=== PATIENT | female | born 1960 | race Two or more races ===

== ENCOUNTER 2023-04-21 09:48 | Outpatient (AMB) | payer OTHER, SELFPAY ==
--- NOTE | 2023-04-21 09:54 | MHC.PC.OV ---
Vital Signs 04/21/23 09:57 Height 5 ft 4 in Weight 313 lb 4 oz BMI 53.8 BP 132/90 H Blood Pressure Location Lt brachial Position Sitting Pulse 91 Pulse Source Pulse Oximeter Pulse Oximetry (%) 97 Oxygen Delivery Method Room Air Intake Visit Reasons: f/u Intake Note: Patient is here to follow up on HTN. Distributor Operator Required: No Supervisor Dry Cell Assembly: Not Required per policy Accompanied by: Self / Same As Patient Allergies Codeine Sulfate Allergy (Unknown, Uncoded 05/01/23 14:47) swelling Medication List - Last Reconciled 05/01/23 by Edmar Chatterjee MD cholecalciferol (vitamin D3) 25 mcg PO DAILY thiamine HCl (vitamin B1) 100 mg PO DAILY vitamin B complex 1 cap PO DAILY Tobacco use date assessed: 04/21/23 Dental Screening Dental Screen Date: 04/21/23 Did you have a dental visit in the last 12 months?: No Did you have a dental problem in the last 6 months where you did not have access to dental care?: No Was dental information given to patient?: No HPI f/u HPI Details = 62-year-old female presents to the office to discuss her chronic medical conditions. Patient gives history of intense anxiety when she meets people. She does not like to be in small areas and does not venture out of the house much. She has not been seen in this office in a long time. Continues to feel anxious. Reluctant to take any medications. [facility] Medical History (Updated 05/01/23 @ 14:51 by Edmar Chatterjee MD) Generalized anxiety disorder Essential hypertension Surgical History History of lithotripsy History of 3 sections Family History Mother No problems noted. Father No problems noted. Social History Housing: Apartment Alcohol intake: never Patient Tobacco Use Status: Never used Tobacco e-Cigarette/Vaping Use: Never Used Second Hand Smoke Exposure: No service: No Current occupational status: disabled Cognitive needs: Yes (cane) Hearing needs: No Vision needs: Yes (glasses) Questionnaire PHQ-9 Over the last 2 weeks, how often have you been bothered by any of the following problems? 1. Little interest or pleasure in doing things: more than half the days 2. Feeling down, depressed, or hopeless: nearly every day 3. Trouble falling or staying asleep, or sleeping too much: several days 4. Feeling tired or having little energy: several days 5. Poor appetite or overeating: more than half the days 6. Feeling bad about yourself - or that you are a failure or have let yourself or your family down: several days 7. Trouble concentrating on things, such as reading the newspaper or watching television: several days 8. Moving or speaking so slowly that other people could have noticed. Or the opposite - being so fidgety or restless that you have been moving around a lot more than usual: not at all 9. Thoughts that you would be better off or of hurting yourself in some way: not at all Total score: 11 Depression Screening Interpretation: Positive Depression Screening Done: Yes Source: Developed by Drs. Edmond Kaiser, Dinorah Durán, Jakob Heath and colleagues, with an educational марина from [employer]. Thrive Questionnaire Date Thrive assessed: 04/21/23 I am a: Patient What is your living situation today?: I have a steady place to live Within the past 12 months, did the food you bought not last and you didn't have the money to get more?: Never true Within the past 12 months, did you worry whether your food would run out before you got money to buy more?: Never true Do you have trouble paying for medicines?: No Do you have trouble getting transportation to medical appointments?: No Do you have trouble paying your heating and electricity bill?: No Do you have trouble taking care of your child, family member or friend?: No Do you have trouble with day-to-day activities such as bathing, preparing meals, shopping, managing finances, etc.?: No Are you currently unemployed and looking for a job?: No Are you interested in more education?: No Currently or been in a relationship where the following occur: no concerns reported THRIVE Score: 0 AUDIT C Alcohol Use Questionnaire (AUDIT-C) 1. How often do you have a drink containing alcohol?: Never Total Score: 0 THOMAS-7 AMB Questionnaire THOMAS-7 Date THOMAS - 7 assessed: 04/21/23 Feeling nervous, anxious, or on edge: 3 = Nearly every day Not being able to stop or control worryin = Nearly every day Worrying too much about different things: 3 = Nearly every day Trouble relaxin = Nearly every day Being so restless that it is hard to sit still: 2 = More than half the days Becoming easily annoyed or irritable: 1 = Several days Feeling afraid as if something awful might happen: 1 = Several days Total THOMAS-7 score (0-4 normal; 5-9 mild; 10-14 moderate; 15-21 severe): 16 Source: Developed by Drs. Edmond Kaiser, Dinorah Durán, Jakob Heath and colleagues, with an educational марина from [employer]. Physical exam (Primary Care) Vital Signs: Last Vital Signs Pulse 91 04/21/23 09:57 BP 132/90 H 04/21/23 09:57 Pulse Ox 97 04/21/23 09:57 Oxygen Delivery Method Room Air 04/21/23 09:57 Care Plan Goal for BP management: Diastolic blood pressure is elevated. Patient unwilling to take medications. BMI result Body Mass Index 53.8 BMI Assessment/Plan discussion: High (1 lb per week weight loss suggested.) BMI High, discussed plan: lifestyle, weight reduction, dietary and physical activity Tobacco/Smoking Status: Tobacco use Status Tobacco use date assessed 04/21/23 04/21/23 10:02 Patient Tobacco Use Status Never used Tobacco 04/21/23 10:06 e-Cigarette/Vaping Use Never Used 04/21/23 10:06 PHQ-9: PHQ-9 Score PHQ-9: Total score 11 04/21/23 10:09 Depression Screening Interpretation: Positive Thrive Assessment: Date of Thrive Assessment Date Thrive assessed 04/21/23 04/21/23 10:02 Currently or been in a relationship where the following occur: no concerns reported Const General: cooperative and healthy appearing Nutritional Appearance: well nourished Orientation/consciousness: patient oriented x3 Limitations: no limitations HENMT Head: Yes normal to inspection Eyes General: appearance normal, both eyes and all related structures Neck Neck: Yes normal visual inspection Chest Chest palpation & inspection: normal palpation of entire chest wall Resp Effort & Inspection: normal respiratory effort Neuro General: patient oriented x3 Assessment and Plan Assessment & Plan (1) Class 2 severe obesity with body mass index (BMI) of 35 to 39.9 with serious comorbidity: Code(s): E66.01 - Morbid (severe) obesity due to excess calories Plan: Patient was counseled on the importance of diet and exercise. 1 lb per week weight loss suggested. (2) Essential hypertension: Code(s): I10 - Essential (primary) hypertension Plan: Due to her anxiety, patient is not getting blood work done. She is also very reluctant to start any blood pressure medications. (3) Generalized anxiety disorder: Code(s): F41.1 - Generalized anxiety disorder Plan: Her medical condition is affecting her daily activities. Patient does not venture out due to anxiety about being in small places. She is declining therapy or medications. Her son who was waiting outside for her was brought into the office. I explained my concerns. The son has promised to talk to his mother and will get back to me. Coding Level of Care Code Est Pt Level 4 (29063) Diagnoses Class 2 severe obesity with body mass index (BMI) of 35 to 39.9 with serious comorbidity E66.01 Essential hypertension I10 Generalized anxiety disorder F41.1
[2023-04-21 09:57] VITALS: BP 132/90; PULSE 91; O2SAT 97; BMI 53.8
== END 2023-04-21 10:57 | disposition home or self-care (01) ==
PROVIDERS: PCP Internal Medicine; Visit Provider Internal Medicine
DX: I10 Essential (primary) hypertension (principal); E66.01 Morbid (severe) obesity due to excess calories; F41.1 Generalized anxiety disorder; Z68.43 Body mass index [BMI] 50.0-59.9, adult
CPT/HCPCS: 99214

== ENCOUNTER 2023-06-29 11:34 | Outpatient (REF) | payer OTHER, SELFPAY ==
[2023-06-29 13:47] LABS: Alanine Aminotransferase 43 U/L (0-31); Albumin Level 4.2 g/dL (3.5-5.0); Alkaline Phosphatase 105 U/L (39-117); Anion Gap 16 (12-20); Aspartate Amino Transferase 25 U/L (5-31); Bilirubin Direct 0.2 mg/dL (0.0-0.5); Bilirubin Total 0.4 mg/dL (0.0-1.0); Blood Urea Nitrogen 12 mg/dL (9-16); Calcium 9.7 mg/dL (8.4-10.2); Carbon Dioxide 26 mmol/L (22-29); Chloride 103 mmol/L (96-108); Cholesterol 198 mg/dL (<200); Estimated Glomerular Filt Rate > 60; Glucose Random 96 mg/dL (60-115); HDL Cholesterol 56 mg/dL (>40); LDL Cholesterol Calculated 126 mg/dL (<100); Potassium 3.9 mmol/L (3.3-5.1); Sodium 141 mmol/L (135-145); Total Protein 8.2 g/dL (6.5-8.0); Triglycerides 84 mg/dL (<150)
[2023-06-29 14:03] LABS: Thyroid Stimulating Hormone 12.72 uIU/mL (0.32-4.0)
== END 2023-06-29 11:35 | disposition home or self-care (01) ==
LOC: HO.LAB 11:34
PROVIDERS: PCP Internal Medicine; Visit Provider Internal Medicine
DX: E66.01 Morbid (severe) obesity due to excess calories (principal); I10 Essential (primary) hypertension
CPT/HCPCS: 36415; 80048; 80061; 80076; 84443

== ENCOUNTER 2023-06-30 09:00 | Outpatient (AMB) | payer OTHER, SELFPAY ==
--- NOTE | 2023-06-30 09:02 | A.OFFPC_ITS ---
Vital Signs 06/30/23 09:03 Height 5 ft 4 in Weight 312 lb 4 oz BMI 53.6 BP 130/80 Blood Pressure Location Lt brachial Position Sitting Pulse 98 Pulse Source Pulse Oximeter Pulse Oximetry (%) 97 Oxygen Delivery Method Room Air Intake Visit Reasons: HTN, THOMAS f/u Intake Note: Patient is here to follow up on HTN, THOMAS. Applications Support Engineer Required: No Data Warehouse Manager: Not Required per policy Accompanied by: Self / Same As Patient Allergies Codeine Sulfate Allergy (Unknown, Uncoded 06/30/23 10:02) swelling Medication List - Last Reconciled 06/30/23 by Edmar Chatterjee MD cholecalciferol (vitamin D3) 25 mcg PO DAILY levothyroxine (Synthroid) 25 mcg PO DAILY thiamine HCl (vitamin B1) 100 mg PO DAILY vitamin B complex 1 cap PO DAILY Tobacco use date assessed: 06/30/23 Dental Screening Dental Screen Date: 04/21/23 HPI HTN, THOMAS f/u HPI Details 62 yr old presents to the office to disc uss her medical conditions. Pt continues to have marked anxiety. This precludes her from going out of the house or getting labwork done. With a lot of persuasion from her son, she could get bw done for today's office visit. [facility] Medical History (Updated 06/30/23 @ 10:06 by Edmar Chatterjee MD) Acquired hypothyroidism Class 2 severe obesity with body mass index (BMI) of 35 to 39.9 with serious comorbidity Generalized anxiety disorder Essential hypertension Surgical History History of lithotripsy History of 3 sections Family History Mother No problems noted. Father No problems noted. Social History Housing: Apartment Alcohol intake: never Patient Tobacco Use Status: Never used Tobacco e-Cigarette/Vaping Use: Never Used Second Hand Smoke Exposure: No service: No Current occupational status: disabled Cognitive needs: Yes (cane) Hearing needs: No Vision needs: Yes (glasses) Questionnaire PHQ-9 Over the last 2 weeks, how often have you been bothered by any of the following problems? 1. Little interest or pleasure in doing things: nearly every day 2. Feeling down, depressed, or hopeless: nearly every day 3. Trouble falling or staying asleep, or sleeping too much: more than half the days 4. Feeling tired or having little energy: more than half the days 5. Poor appetite or overeating: more than half the days 6. Feeling bad about yourself - or that you are a failure or have let yourself or your family down: more than half the days 7. Trouble concentrating on things, such as reading the newspaper or watching television: nearly every day 8. Moving or speaking so slowly that other people could have noticed. Or the opposite - being so fidgety or restless that you have been moving around a lot more than usual: several days 9. Thoughts that you would be better off or of hurting yourself in some way: not at all Total score: 18 Depression Screening Interpretation: Positive Depression Screening Done: Yes Source: Developed by Drs. Edmond Kaiser, Jakob Rob and colleagues, with an educational марина from [employer]. Thrive Questionnaire Date Thrive assessed: 04/21/23 THOMAS-7 AMB Questionnaire THOMAS-7 Date THOMAS - 7 assessed: 06/30/23 Feeling nervous, anxious, or on edge: 3 = Nearly every day Not being able to stop or control worryin = More than half the days Worrying too much about different things: 2 = More than half the days Trouble relaxin = More than half the days Being so restless that it is hard to sit still: 1 = Several days Becoming easily annoyed or irritable: 0 = Not at all Feeling afraid as if something awful might happen: 1 = Several days Total THOMAS-7 score (0-4 normal; 5-9 mild; 10-14 moderate; 15-21 severe): 11 Source: Developed by Drs. Edmond Kaiser, Jakob Rob and colleagues, with an educational марина from [employer]. Physical exam (Primary Care) Vital Signs: Last Vital Signs Pulse 98 06/30/23 09:03 BP 130/80 06/30/23 09:03 Pulse Ox 97 06/30/23 09:03 Oxygen Delivery Method Room Air 06/30/23 09:03 BMI result Body Mass Index 53.6 Tobacco/Smoking Status: Tobacco use Status Tobacco use date assessed 06/30/23 06/30/23 09:13 Patient Tobacco Use Status Never used Tobacco 06/30/23 09:13 e-Cigarette/Vaping Use Never Used 06/30/23 09:13 PHQ-9: PHQ-9 Score PHQ-9: Total score 18 06/30/23 09:13 Depression Screening Interpretation: Positive Thrive Assessment: Date of Thrive Assessment Date Thrive assessed 04/21/23 06/30/23 09:13 Const General: cooperative and healthy appearing Nutritional Appearance: well nourished Orientation/consciousness: patient oriented x3 Limitations: no limitations HENMT Head: Yes normal to inspection Eyes General: appearance normal, both eyes and all related structures Neck Neck: Yes normal visual inspection Chest Chest palpation & inspection: normal palpation of entire chest wall Resp Effort & Inspection: normal respiratory effort Neuro General: patient oriented x3 Assessment and Plan Assessment & Plan (1) Class 2 severe obesity with body mass index (BMI) of 35 to 39.9 with serious comorbidity: Code(s): E66.01 - Morbid (severe) obesity due to excess calories Plan: Weight loss counselling done (2) Acquired hypothyroidism: Code(s): E03.9 - Hypothyroidism, unspecified Plan: TSH is elevated. Pt very unsure, if she can be compliant with medications. Again importance of taking the med emphasized. Medications: New levothyroxine (Synthroid) 25 mcg PO DAILY 60 tabs 0RF Coding Level of Care Code Est Pt Level 4 (95048) Diagnoses Class 2 severe obesity with body mass index (BMI) of 35 to 39.9 with serious comorbidity E66.01 Acquired hypothyroidism E03.9
[2023-06-30 09:03] VITALS: BP 130/80; PULSE 98; O2SAT 97; BMI 53.6
== END 2023-06-30 09:57 | disposition home or self-care (01) ==
PROVIDERS: PCP Internal Medicine; Visit Provider Internal Medicine
DX: E03.9 Hypothyroidism, unspecified (principal); E66.01 Morbid (severe) obesity due to excess calories; Z68.43 Body mass index [BMI] 50.0-59.9, adult
CPT/HCPCS: 99214

== ENCOUNTER 2023-09-22 10:10 | Outpatient (AMB) | payer OTHER, SELFPAY ==
[2023-09-22 10:15] VITALS: BP 156/84; PULSE 98; O2SAT 97; BMI 55.1
--- NOTE | 2023-09-22 10:15 | A.OFFPC_ITS ---
Vital Signs 09/22/23 10:15 Height 5 ft 4 in Weight 321 lb BMI 55.1 BP 156/84 H Blood Pressure Location Lt brachial Position Sitting Pulse 98 Pulse Source Pulse Oximeter Pulse Oximetry (%) 97 Oxygen Delivery Method Room Air Intake Visit Reasons: Reschedule Lt leg pain Glass Cleaner Required: No Allergies Codeine Sulfate Allergy (Unknown, Uncoded 09/28/23 10:23) swelling Medication List - Last Reconciled 09/28/23 by Edmar Chatterjee MD cholecalciferol (vitamin D3) 25 mcg PO DAILY thiamine HCl (vitamin B1) 100 mg PO DAILY vitamin B complex 1 cap PO DAILY Tobacco use date assessed: 06/30/23 Dental Screening Dental Screen Date: 04/21/23 HPI Reschedule Lt leg pain HPI Details 62-year-old female presents to the [facility] for a follow-up visit. She stopped taking the Synthroid because it led to vaginal bleeding on two separate occasions. Continues to have pain in the left hip and leg. Reluctant to take any prescription medications. Using a walker to ambulate on occasions. Lives with her son. Able to go to the bathroom independently. [facility] Medical History Acquired hypothyroidism Class 2 severe obesity with body mass index (BMI) of 35 to 39.9 with serious comorbidity Generalized anxiety disorder Essential hypertension Surgical History History of lithotripsy History of 3 sections Family History Mother No problems noted. Father No problems noted. Social History Housing: Apartment Alcohol intake: never Patient Tobacco Use Status: Never used Tobacco e-Cigarette/Vaping Use: Never Used Second Hand Smoke Exposure: No service: No Current occupational status: disabled Cognitive needs: Yes (cane) Hearing needs: No Vision needs: Yes (glasses) Questionnaire Thrive Questionnaire Date Thrive assessed: 04/21/23 AUDIT C Alcohol Use Questionnaire (AUDIT-C) 1. How often do you have a drink containing alcohol?: Never 3. How often do you have six or more drinks on one occasion?: Never Total Score: 0 THOMAS-7 AMB Questionnaire THOMAS-7 Date THOMAS - 7 assessed: 06/30/23 Feeling nervous, anxious, or on edge: 3 = Nearly every day Not being able to stop or control worryin = More than half the days Worrying too much about different things: 2 = More than half the days Trouble relaxin = More than half the days Being so restless that it is hard to sit still: 1 = Several days Becoming easily annoyed or irritable: 0 = Not at all Feeling afraid as if something awful might happen: 1 = Several days Total THOMAS-7 score (0-4 normal; 5-9 mild; 10-14 moderate; 15-21 severe): 11 Source: Developed by Drs. Edmond Kaiser, Dinorah Durán, Jakob Heath and colleagues, with an educational марина from [employer]. Physical exam (Primary Care) Vital Signs: Last Vital Signs Pulse 98 09/22/23 10:15 BP 156/84 H 09/22/23 10:15 Pulse Ox 97 09/22/23 10:15 Oxygen Delivery Method Room Air 09/22/23 10:15 Care Plan Goal for BP management: Elevated blood pressure noted. Patient is reluctant to start medications. BMI result Body Mass Index 55.1 BMI Assessment/Plan discussion: High Tobacco/Smoking Status: Tobacco use Status Tobacco use date assessed 06/30/23 09/22/23 10:15 Patient Tobacco Use Status Never used Tobacco 09/22/23 10:15 e-Cigarette/Vaping Use Never Used 09/22/23 10:15 Thrive Assessment: Date of Thrive Assessment Date Thrive assessed 04/21/23 09/22/23 10:15 Const General: cooperative and healthy appearing Nutritional Appearance: well nourished Orientation/consciousness: patient oriented x3 Limitations: no limitations HENMT Head: Yes normal to inspection Eyes General: appearance normal, both eyes and all related structures Neck Neck: Yes normal visual inspection Chest Chest palpation & inspection: normal palpation of entire chest wall Resp Effort & Inspection: normal respiratory effort Neuro General: patient oriented x3 Assessment and Plan Assessment & Plan (1) Acquired hypothyroidism: Code(s): E03.9 - Hypothyroidism, unspecified Plan: Patient has stopped taking Synthroid and has refused to take these medications in the future. She understands that untreated, this condition will worsen. (2) Generalized anxiety disorder: Code(s): F41.1 - Generalized anxiety disorder Plan: Patient overall is not taking care of her health. The vaginal bleeding needs further investigation. I encouraged her to see a senior pensions administrator and patient has r efused again. She does not like coming out of the house, it causes extreme anxiety for her. She does not like taking medications as they do not suit her. I encouraged patient to bring her family members to the office visits. Again, she does not want to bother them. Patient is capable to make valid decisions. However the decisions she is taking is hurting her health. Currently she is on no medications. I spent 20 minutes discussing this conversation. Coding Level of Care Code Est Pt Level 4 (26760) Complex EM visit Add On G2211 Diagnoses Acquired hypothyroidism E03.9 Generalized anxiety disorder F41.1
== END 2023-09-22 11:18 | disposition home or self-care (01) ==
PROVIDERS: PCP Internal Medicine; Visit Provider Internal Medicine
DX: E03.9 Hypothyroidism, unspecified (principal); F41.1 Generalized anxiety disorder
CPT/HCPCS: 99214; G2211

== ENCOUNTER 2024-01-26 13:31 | Outpatient (AMB) | payer OTHER, SELFPAY ==
--- NOTE | 2024-01-26 13:36 | A.OFFPC_ITS ---
Intake Visit Reasons: 3MoFollowUp Broadcast Technician Required: No Information Interpreted: non-clinical & clinical Lie Detector Operator: Not Required per policy Accompanied by: Self / Same As Patient Allergies Codeine Sulfate Allergy (Unknown, Uncoded 01/26/24 13:57) swelling Medication List - Last Reconciled 01/26/24 by Edmar Chatterjee MD cholecalciferol (vitamin D3) 25 mcg PO DAILY thiamine HCl (vitamin B1) 100 mg PO DAILY vitamin B complex 1 cap PO DAILY Tobacco use date assessed: 06/30/23 Dental Screening Dental Screen Date: 04/21/23 [facility] Medical History Acquired hypothyroidism Class 2 severe obesity with body mass index (BMI) of 35 to 39.9 with serious comorbidity Generalized anxiety disorder Essential hypertension Surgical History History of lithotripsy History of 3 sections Family History Mother No problems noted. Father No problems noted. Social History Housing: Apartment Alcohol intake: never Patient Tobacco Use Status: Never used Tobacco e-Cigarette/Vaping Use: Never Used Second Hand Smoke Exposure: No service: No Current occupational status: disabled Cognitive needs: Yes (cane) Hearing needs: No Vision needs: Yes (glasses) Questionnaire Thrive Questionnaire Date Thrive assessed: 04/21/23 THOMAS-7 AMB Questionnaire THOMAS-7 Date THOMAS - 7 assessed: 06/30/23 Source: Developed by Drs. Edmond Kaiser, Dinorah Durán, Jakob Heath and colleagues, with an educational марина from [employer]. Physical exam (Primary Care) Tobacco/Smoking Status: Tobacco use Status Tobacco use date assessed 06/30/23 01/26/24 13:37 Patient Tobacco Use Status Never used Tobacco 01/26/24 13:37 e-Cigarette/Vaping Use Never Used 01/26/24 13:37 Thrive Assessment: Date of Thrive Assessment Date Thrive assessed 04/21/23 01/26/24 13:37 Telehealth Telehealth Telehealth Platform: [facility] Location of provider rendering services: practice address Location of patient: address on file Patient Identification confirmed using: Name, : Yes Telehealth method: voice only Patient verbally consented to treatment: Yes Patient verbally consented to billing insurance company: Yes Patient informed of any privacy concerns related to visit: Yes Minutes spent on Phone/Video with Pt.: 15 Coding Level of Care Code Est Pt Level 4 (15879) Diagnoses Essential hypertension I10 Class 2 severe obesity with body mass index (BMI) of 35 to 39.9 with serious comorbidity E66.01 Generalized anxiety disorder F41.1 Acquired hypothyroidism E03.9 Vaginal bleeding N93.9 Assessment & Plan Assessment & Plan (1) Essential hypertension: Code(s): I10 - Essential (primary) hypertension Category: Medical Plan: Continue medications at same dosage. (2) Class 2 severe obesity with body mass index (BMI) of 35 to 39.9 with serious comorbidity: Code(s): E66.01 - Morbid (severe) obesity due to excess calories Category: Medical Plan: Counselling on the importance of diet and exercise done. (3) Generalized anxiety disorder: Code(s): F41.1 - Generalized anxiety disorder Category: Medical Plan: This condition is not properly treated. Patient has marked anxiety and she does not like leaving her home. Declines medications or CBT. This is precluding her from going to the [employer] etc (4) Acquired hypothyroidism: Code(s): E03.9 - Hypothyroidism, unspecified Category: Medical Plan: Patient has stopped taking the Synthroid. She believes this medication caused her vaginal bleed. Despite my explanation, patient declines to start medications again. Has promised to get her TSH checked. (5) Vaginal bleeding: Code(s): N93.9 - Abnormal uterine and vaginal bleeding, unspecified Plan: Patient continues to decline referrals to [employer] MD for evaluation of postmenopausal bleed. She understands the consequences. Continues to decline routine mammogram and colonoscopy appts. Plan History of Present Illness The patient is a 63-year-old female presenting with postmenopausal bleeding. She discontinued Synthroid after experiencing bleeding, suggesting a perceived linkage between the medication and her symptoms. However, she has not resumed the medication or sought gynecological evaluation as previously advised. The exact onset of vaginal bleeding was not specified, but she reports no further bleeding episodes currently. Despite recommendations to see a parachute manufacturing supervisor due to her postmenopausal status and risk considerations, she has deferred consultation due to weather-related constraints and anxiety about leaving her home. Social History - The patient experiences significant anxiety and expresses reluctance to leave her home, attributing it to personal comfort during cold weather. - The patient frequently spends time at home and has minimal engagement in outside activities. - Family interaction includes visits from grandchildren, suggesting a possible support system. Review of Systems - General: Denies current medication use. - Psychiatric: Reports anxiety. Physical Exam Results Plan - Educated the patient on the necessity of gynecological evaluation, particularly given her postmenopausal status and previously reported vaginal bleeding. - Advised to resume Synthroid therapy for hypothyroidism, outlining the lack of association between the medication and vaginal bleeding. - Discussed anxiety management strategies and encouraged addressing these issues proactively. - Scheduled blood work to monitor thyroid function, with an emphasis on timely completion. Patient was informed and verbally consented to the use of an ambient scribe for clinic note documentation during this visit. Discussion Notes I discussed with the patient the importance of addressing her postmenopausal bleeding by consulting with a parachute manufacturing supervisor. I emphasized that postponing this evaluation increases health risks. Despite her hesitation due to anxiety and current weather conditions, I explained the importance of overcoming these guzman iers. I reassured her that Synthroid is unrelated to her bleeding and advised resuming the medication. We reviewed the significance of checking her thyroid levels regularly. I also acknowledged her anxiety and highlighted possible management options without suggesting medication at this time. Follow-up was set to allow her flexibility to seek care when conditions are more favorable. Patient Instructions - Schedule an appointment with a parachute manufacturing supervisor as soon as possible to address postmenopausal bleeding. - Resume taking Synthroid daily for thyroid management. - Complete thyroid blood work promptly for assessment. - Monitor anxiety symptoms and consider lifestyle modifications to improve comfort leaving the home. - Contact the office if health concerns arise or to adjust the follow-up sche dule as needed. Orders: Orders Complete Blood Count no Diff Today E03.9 - Hypothyroidism, unspecified, E66.01 - Morbid (severe) obesity due to excess calories, F41.1 - Generalized anxiety disorder, I10 - Essential (primary) hypertension Basic Metabolic Panel Today E03.9 - Hypothyroidism, unspecified, E66.01 - Morbid (severe) obesity due to excess calories, F41.1 - Generalized anxiety disorder, I10 - Essential (primary) hypertension UA and rflx microscopic Today E03.9 - Hypothyroidism, unspecified, E66.01 - Morbid (severe) obesity due to excess calories, F41.1 - Generalized anxiety disorder, I10 - Essential (primary) hypertension Liver Panel Today E03.9 - Hypothyroidism, unspecified, E66.01 - Morbid (severe) obesity due to excess calories, F41.1 - Generalized anxiety disorder, I10 - Essential (primary) hypertension Thyroid Stimulating Hormone Today E03.9 - Hypothyroidism, unspecified, E66.01 - Morbid (severe) obesity due to excess calories, F41.1 - Generalized anxiety disorder, I10 - Essential (primary) hypertension Lipid Panel Today E03.9 - Hypothyroidism, unspecified, E66.01 - Morbid (severe) obesity due to excess calories, F41.1 - Generalized anxiety disorder, I10 - Essential (primary) hypertension
== END 2024-01-26 15:58 | disposition home or self-care (01) ==
LOC: HO.HMCH 13:31
PROVIDERS: PCP Internal Medicine; Visit Provider Internal Medicine
DX: I10 Essential (primary) hypertension (principal); E66.01 Morbid (severe) obesity due to excess calories; F41.1 Generalized anxiety disorder; E03.9 Hypothyroidism, unspecified; N93.9 Abnormal uterine and vaginal bleeding, unspecified

== ENCOUNTER 2024-11-29 15:03 | Outpatient (AMB) | payer OTHER, SELFPAY ==
--- NOTE | 2024-11-29 15:13 | A.OFFPC_ITS ---
Vital Signs 11/29/24 15:14 Height 5 ft 4 in Weight 321 lb 2 oz BMI 55.1 BP 124/66 Blood Pressure Location Lt brachial Position Sitting Pulse 96 Pulse Source Pulse Oximeter Temp 97.3 F Temp Source Temporal Artery Scan Pulse Oximetry (%) 94 Oxygen Delivery Method Room Air Intake Visit Reasons: Annual PE Intake Note: Patient is here today for a physical. Check Writer Salesperson Required: No Network Engineering Advisor: Present Accompanied by: STAFF Allergies Codeine Sulfate Allergy (Unknown, Uncoded 11/29/24 15:13) swelling Tobacco use date assessed: 11/29/24 Dental Screening Dental Screen Date: 11/29/24 Did you have a dental visit in the last 12 months?: No Did you have a dental problem in the last 6 months where you did not have access to dental care?: No Was dental information given to patient?: No [facility] Medical History Acquired hypothyroidism Class 2 severe obesity with body mass index (BMI) of 35 to 39.9 with serious comorbidity Generalized anxiety disorder Essential hypertension Surgical History History of lithotripsy History of 3 sections Family History Mother No problems noted. Father No problems noted. Social History Housing: Apartment Alcohol intake: never Patient Tobacco Use Status: Never used Tobacco e-Cigarette/Vaping Use: Never Used Second Hand Smoke Exposure: No service: No Current occupational status: disabled Cognitive needs: Yes (cane) Hearing needs: No Vision needs: Yes (glasses) Questionnaire PHQ-9 Over the last 2 weeks, how often have you been bothered by any of the following problems? 1. Little interest or pleasure in doing things: not at all 2. Feeling down, depressed, or hopeless: not at all 3. Trouble falling or staying asleep, or sleeping too much: not at all 4. Feeling tired or having little energy: not at all 5. Poor appetite or overeating: not at all 6. Feeling bad about yourself - or that you are a failure or have let yourself or your family down: not at all 7. Trouble concentrating on things, such as reading the newspaper or watching television: not at all 8. Moving or speaking so slowly that other people could have noticed. Or the opposite - being so fidgety or restless that you have been moving around a lot more than usual: not at all 9. Thoughts that you would be better off or of hurting yourself in some way: not at all Total score: 0 Depression Screening Interpretation: Negative Depression Screening Done: Yes Source: Developed by Drs. Edmond Kaiser, Dinorah Durán, Jakob Heath and colleagues, with an educational марина from [employer]. Thrive Questionnaire Date Thrive assessed: 11/29/24 I am a: Patient What is your living situation today?: I have a steady place to live Within the past 12 months, did the food you bought not last and you didn't have the money to get more?: Often true Within the past 12 months, did you worry whether your food would run out before you got money to buy more?: Often true Do you have trouble paying for medicines?: No Do you have trouble getting transportation to medical appointments?: No Do you have trouble paying your heating and electricity bill?: No Do you have trouble taking care of your child, family member or friend?: No Do you have trouble with day-to-day activities such as bathing, preparing meals, shopping, managing finances, etc.?: No Are you currently unemployed and looking for a job?: No Are you interested in more education?: I choose not to answer this question Please select the resources that you would like help with: None Currently or been in a relationship where the following occur: I choose not to answer THRIVE Score: 2 AUDIT C Alcohol Use Questionnaire (AUDIT-C) 1. How often do you have a drink containing alcohol?: Never Total Score: 0 THOMAS-7 AMB Questionnaire THOMAS-7 Date THOMAS - 7 assessed: 11/29/24 Feeling nervous, anxious, or on edge: 0 = Not at all Not being able to stop or control worryin = Not at all Worrying too much about different things: 0 = Not at all Trouble relaxin = Not at all Being so restless that it is hard to sit still: 0 = Not at all Becoming easily annoyed or irritable: 0 = Not at all Feeling afraid as if something awful might happen: 0 = Not at all Total THOMAS-7 score (0-4 normal; 5-9 mild; 10-14 moderate; 15-21 severe): 0 Source: Developed by Drs. Edmond Kaiser, Dinorah Durán, Jakob Heath and colleagues, with an educational марина from [employer]. Physical exam (Primary Care) Vital Signs: Last Vital Signs Temp 97.3 F 11/29/24 15:14 Pulse 96 11/29/24 15:14 BP 124/66 11/29/24 15:14 Pulse Ox 94 11/29/24 15:14 Oxygen Delivery Method Room Air 11/29/24 15:14 BMI result Body Mass Index 55.1 Tobacco/Smoking Status: Tobacco use Status Tobacco use date assessed 11/29/24 11/29/24 15:20 Patient Tobacco Use Status Never used Tobacco 11/29/24 15:20 e-Cigarette/Vaping Use Never Used 11/29/24 15:20 PHQ-9: PHQ-9 Score PHQ-9: Total score 0 11/29/24 15:20 Depression Screening Interpretation: Negative Thrive Assessment: Date of Thrive Assessment Date Thrive assessed 11/29/24 11/29/24 15:20 Currently or been in a relationship where the following occur: I choose not to answer Coding Level of Care Code Est Pt Prev Care >65y(25477) Diagnoses Annual physical exam Z00.00 Assessment & Plan Assessment & Plan (1) Annual physical exam: Code(s): Z00.00 - Encounter for general adult medical examination without abnormal findings Category: Medical Plan: History of Present Illness - The patient is a 64-year-old female presenting for an annual physical examination. - Anxiety: Reports severe anxiety impacting her ability to attend medical appointments. - Hip pain: History of hip pain limiting mobility. - Preventative care: Has not completed colon cancer screening with stool test despite having the kit. Social History - Exercise: Limited due to hip pain. Review of Systems - Psychiatric: Reports severe anxiety. - Musculoskeletal: Reports hip pain limiting mobility. Physical Exam General: Cooperative and healthy appearing Nutritional Appearance: Well nourished Orientation/consciousness: Patient oriented x3 Limitations: No limitations Head: Normal to inspection General: Appearance normal, both eyes and all related structures Neck: Normal visual inspection Chest: Normal palpation of entire chest wall Respiratory: Lungs clear to auscultation ormal respiratory effort Neurology: Patient oriented x3, anxiety present, no medications taken Results Plan - Encourage completion of colon cancer screening with stool test. - Discussed the importance of managing anxiety and exploring non-pharmacological options such as teas and natural remedies. - Recommended follow-up for hip pain evaluation and potential imaging if symptoms persist. Discussion Notes I discussed with the patient the importance of completing the colon cancer screening with the stool test she has at home. We also talked about managing her anxiety through non-pharmacological means, such as teas and natural remedies. Additionally, I recommended a follow-up for her hip pain, including the possibility of imaging if her symptoms continue to affect her mobility. Patient Instructions - Complete the colon cancer screening with the stool test kit at home. - Consider using teas and natural remedies to help manage anxiety. - Follow up for hip pain evaluation and consider imaging if pain persists. Orders: Orders XR hip LT min 2V Today M16.12 - Unilateral primary osteoarthritis, left hip
[2024-11-29 15:14] VITALS: BP 124/66; PULSE 96; TEMP 36.3; O2SAT 94; BMI 55.1
== END 2024-11-29 16:12 | disposition home or self-care (01) ==
LOC: HO.HMCH 15:05
PROVIDERS: PCP Internal Medicine; Visit Provider Internal Medicine
DX: Z00.00 Encounter for general adult medical examination without abnormal findings (principal)

== ENCOUNTER → 2024-11-29 15:03 | Outpatient (BNVA) | payer OTHER, SELFPAY | PROVIDERS: PCP Internal Medicine; Visit Provider Internal Medicine | DX: Z00.00 Encounter for general adult medical examination without abnormal findings (principal); F41.9 Anxiety disorder, unspecified; M16.12 Unilateral primary osteoarthritis, left hip | CPT/HCPCS: 96127; 99396 ==